=== PATIENT | female | born 1975 | race Caucasian/White ===

== ENCOUNTER 2021-09-13 11:57 | Emergency (ER) | payer OTHER ==
[~2021-09-13 11:57] MED LIST: ALEVE220 M1 PO; BUSPAR5 MG PO; BUSPIRONE HCL15 MG PO; DESVENLAFAXINE50 M1 PO; DITROPAN5 MG PO; KLONOPIN0.5 MG PO; NAPROXEN500 MG PO; POLY-IRON150 MG PO; SYNTHROID75 MCG PO; TRAZODONE 50MG50 MG PO; VITAMIN D-32000 UNIT PO; ZANTAC150 MG PO; ZOFRAN4 MG PO
[2021-09-13 12:36] LABS: BASOPHIL 0.7 % (0-2); EOSINOPHIL 0.7 % (0-5); HCT 41.8 % (37.0-47.0); HGB 14.2 g/dl (12.5-16.0); LYMPHOCYTE 22.5 % (15-48); MCH 29.3 pg (25.0-31.0); MCV 86.2 fL (78.0-100.0); MONOCYTE 7.3 % (0-12); MPV 11.9 fL (6.0-9.5); NEUTROPHIL 68.5 % (41-80); NRBC 0; PLT 177 K/uL (150-400); RBC 4.85 M/uL (4.20-5.40); RDW 13.3 % (11.5-14.0); WBC 6.7 K/uL (4.0-10.5)
[2021-09-13 12:51] LABS: ALBUMIN 4.1 g/dL (3.4-5.0); BILIRUBIN - TOTAL 0.3 mg/dL (0.2-1.0); BUN/CREAT RATIO (CALC) 30.1 RATIO; CREATININE 0.73 mg/dL (0.51-0.95); GLOBULIN (CALCULATION) 3.6 g/dL; POTASSIUM 3.7 mmol/L (3.5-5.1); TOTAL PROTEIN 7.7 g/dL (6.4-8.2)
[2021-09-13 12:57] LABS: LACTIC ACID 1.1 mmol/L (0.4-1.9)
[2021-09-13 13:20] LABS: BILIRUBIN NEGATIVE (NEGATIVE); BLOOD NEGATIVE Ery/uL (NEGATIVE); CLARITY CLEAR (CLEAR); COLOR YELLOW (YELLOW); GLUCOSE (U) NORMAL (NORMAL); LEUKOCYTES NEGATIVE Leu/uL (NEGATIVE); NITRITE NEGATIVE (NEGATIVE); PROTEIN NEGATIVE (NEGATIVE); UROBILINOGEN 0.2 mg/dL (0.2-1.0)
== END 2021-09-13 15:23 | disposition home or self-care (01) ==
LOC: FER 11:57
PROVIDERS: Emergency Medicine
DX: R06.02 Shortness of breath (principal); G70.00 Myasthenia gravis without (acute) exacerbation; I10 Essential (primary) hypertension; Z88.2 Allergy status to sulfonamides; Z20.822 Contact with and (suspected) exposure to COVID-19
CPT/HCPCS: 36415; 36600; 71045; 80053; 81003; 82803; 83605; 83735; 84484; 85025; 93005; U0002